=== PATIENT | male | born 1960 | race Caucasian/White ===

== ENCOUNTER → 2024-09-03 06:15 | Day surgery (SDC) | payer OTHER, SELFPAY ==
[2024-08-21 11:50] VITALS: BMI 25.9
[2024-09-03] VITALS (11 sets, daily range): BP systolic 5–141; BP diastolic 55–102; BMI 25.9
[2024-09-03] MEDS: NORMOSOL-R/PLASMALYTE-A 1000 IV (07:38)
== END ==
LOC: SDS 06:15
PROVIDERS: ATTENDING PHYSICIAN Otolaryngology; FAMILY PHYSICIAN Family Medicine
DX: D11.0 Benign neoplasm of parotid gland (principal)
CPT/HCPCS: 42415; 88305; 88307; 36415; 93005